=== PATIENT | female | born 1970 | race Caucasian/White ===

== ENCOUNTER → 2017-03-03 | Outpatient (CLI) | payer BC ==
[2017-03-03 19:22] LABS: Basophils % (A) 0 %; CH 27.3; CHCM 32.2; Eosinophils % (A) 1 %; HCT 41.4 % (34.0-46.0); HDW 2.64; HGB 13.3 gm/dL (11.4-16.0); Luc # (Auto) 0.11; Luc % (Auto) 2; Lymphocytes # (A) 1.8 k/uL (1.0-4.8); Lymphocytes % (A) 31 %; MCH 27.4 pg (25.0-35.0); MCHC 32.2 g/dL (31.0-37.0); MCV 85.1 fL (80.0-100.0); Mean Platelet Volume 7.7; Monocytes # (A) 0.3 k/uL (0-1.0); Monocytes % (A) 5 %; Neutrophils # (A) 3.6 k/uL (1.3-7.7); Neutrophils % (A) 61 %; RBC 4.86 m/uL (3.80-5.40); RDW 14.1 % (11.5-15.5); WBC 5.9 k/uL (3.8-10.6); WBC (Perox) 6.25
[2017-03-03 19:29] LABS: ALT 22 U/L (9-52); AST 26 U/L (14-36); Alkaline Phosphatase 90 U/L (38-126); Anion Gap 12 mmol/L; Blood Urea Nitrogen 16 mg/dL (7-17); Calcium 9.8 mg/dL (8.4-10.2); Carbon Dioxide 23 mmol/L (22-30); Chloride 105 mmol/L (98-107); Cholesterol 256 mg/dL (<200); Glucose 87 mg/dL (74-99); HDL Cholesterol 65 mg/dL (40-60); Non-African American GFR(MDRD) >60 (>60 ml/min/1.73 sqM); Potassium 4.2 mmol/L (3.5-5.1); Sodium 140 mmol/L (137-145); Total Bilirubin 0.6 mg/dL (0.2-1.3); Triglycerides 92 mg/dL (<150)
== END ==
LOC: MMGSC 12:03
PROVIDERS: ATTEND Family Medicine
DX: Z00.00 Encounter for general adult medical examination without abnormal findings (principal)
CPT/HCPCS: 36415; 80053; 80061; 84443; 85025

== ENCOUNTER → 2021-06-28 | Outpatient (CLI) | payer BC ==
--- NOTE | 2021-06-28 18:23 | CONS ---
CONSULTATION DATE OF SERVICE: 06/28/2021 50-year-old lady has been evaluated in [facility] for significant excessive daytime sleepiness. The patient falling asleep in different situations during the day. HISTORY OF PRESENT ILLNESS/SLEEP WAKE EVALUATION: SLEEP SCHEDULE: Patient's usual sleep schedule from 10 p.m. to 5 a.m. on weekdays and from 11 p.m. to 7 a.m. on weekends. FALLING ASLEEP: No problems with falling asleep, but during the night, the patient wakes up 4 times with 4 episodes of nocturia. DURING SLEEP: Usually she sleeps on the side position. According to the patient, she does not snore. No history of hypnagogic hallucinations, sleep paralysis or cataplexy. Geneva Sleepiness Scale is in very high range of 16. DURING THE DAY/SLEEP WAKE EVALUATION: The patient falling asleep very quickly while sitting and reading, watching TV, as a passenger in the car, or lying down in the afternoon. PAST MEDICAL HISTORY: Mostly negative. MEDICATIONS: None. SOCIAL HISTORY: Negative for smoking or using alcohol occasionally. REVIEW OF SYSTEMS: Rare hot flashes but irregular menstrual periods. No chest pain. No headaches. No abdominal pain. No blood in the stool or urine. Sleepiness during the day. FAMILY HISTORY: Hyperlipidemia. PHYSICAL EXAMINATION: GENERAL: lady without distress. BP 152/78, HR 84, RR 14, height 5 foot, 5 inches, weight 187 pounds. Body mass index 31.1, temperature 98.0, oxygen saturation at room air 95%. Oropharynx low position of soft palate, Mallampati 3. NECK: 14 inches in circumference. Neck: Supple, no JVD. Thyroid is not palpable. LUNGS: Clear to percussion and to auscultation. Good air exchange. No wheezing or rhonchi. HEART: S1, S2 regular. No murmurs, gallops, or rubs. ABDOMEN: Soft and nontender. Bowel sounds are present. No organomegaly appreciated. EXTREMITIES: No clubbing or cyanosis. ALLERGY SPECIALIST: Awake, alert, and oriented X3. Cranial nerves 2 to 7 intact. There is no fasciculation or atrophy. noted. No focal deficits observed. IMPRESSION: 1. Multiple awakenings from sleep every 2 hours, low position of soft palate, Mallampati 3, sleepiness during the day, possible obstructive sleep apnea-hypopnea syndrome. 2. Significant excessive daytime sleepiness. Geneva Sleepiness Scale increased to 16. Differential diagnosis should include hypersomnia and narcolepsy. 3. Mild obesity, body mass index 31.1. 4. Hypertension in the office today. PLAN: 1. Home sleep apnea test to check patient's breathing during sleep. 2. Polysomnogram with following multiple sleep latency test if home sleep apnea test negative for obstructive sleep apnea or periodic limb movements. 3. Increase time in bed to at least 8 hours per night. 4. No driving if feeling sleepiness. 5. Watching and losing weight. 6. No driving if feeling sleepiness. Thank you very much for referring this patient for consultation. Sincerely, Jose Chopra MD, PhD, FAASM Diplomat of [employer] Sleep Medicine Board of [employer] Retirement Sales Consultant of [facility] [place] MMODL / PAOLAN: [id number] /
== END ==
LOC: SLEEP 09:56
PROVIDERS: ATTEND Internal Medicine
DX: G47.10 Hypersomnia, unspecified (principal); I10 Essential (primary) hypertension; E66.9 Obesity, unspecified; Z68.31 Body mass index [BMI] 31.0-31.9, adult
CPT/HCPCS: 99211

== ENCOUNTER 2021-09-12 08:15 | Day surgery (SDC) | payer BC ==
[2021-09-10 10:16] VITALS: BMI 29.9
[~2021-09-12 08:15] MED LIST: LACTATED RINGERS 1,000 ML IV SCH; LIDOCAINE 1% (10MG/ML) FOR IV START INTRADERMA PRN
[2021-09-12 08:45] VITALS: TEMP 97.3
[2021-09-12] MEDS ORDERED: PROPOFOL 10 MG/ML 20 ML VIAL IV ONE (09:16)
--- NOTE | 2021-09-12 09:35 | P.PCN ---
Date of Procedure: 09/12/21 Procedure(s) Performed: BRIEF HISTORY: Patient is a 50-year-old pleasant white female scheduled for an elective colonoscopy as a part of screening for colorectal neoplasia PROCEDURE PERFORMED: Colonoscopy with biopsy. PREOPERATIVE DIAGNOSIS: Screening for colon cancer. IV sedation per Anesthesia. PROCEDURE: After informed consent was obtained, the patient, was brought into the endoscopy unit. IV sedation was administered by Anesthesia under continuous monitoring. Digital rectal examination was normal. Initially the Olympus CF-160 flexible video colonoscope was then inserted in the rectum, gradually advanced into the cecum without any difficulty. Careful examination was performed as the scope was gradually being withdrawn. Ileocecal valve and the appendiceal orifice were visualized and appeared normal. Prep was excellent. Mucosa of the cecum, ascending colon, transverse colon, descending colon, sigmoid colon, and rectum appeared normal. In the distal sigmoid colon there was a 3-4 mm polyp that was removed by cold biopsy. Retroflexion was performed in the rectum and no lesions were seen. The patient tolerated the procedure well. IMPRESSION: 3-4 mm distal sigmoid colon polyp status post biopsy Rest of the colon appeared normal RECOMMENDATIONS: Findings of this examination were discussed with the patient as well as her family. She was advised to follow with the biopsy results. If the biopsy reveals adenoma she can have a repeat colonoscopy in 5 years.
[2021-09-12 10:00] VITALS: BP 110/76; PULSE 62; RESP 16
== END 2021-09-12 10:30 | disposition home or self-care (01) ==
LOC: ORWHC2ENDO 08:15
PROVIDERS: ATTEND Internal Medicine Gastroenterology
DX: Z12.11 Encounter for screening for malignant neoplasm of colon (principal); K63.5 Polyp of colon; Z98.890 Other specified postprocedural states
CPT/HCPCS: 81025; 88305; 45380; J2704

== ENCOUNTER → 2021-10-03 | Outpatient (CLI) | payer BC ==
--- NOTE | 2021-10-03 21:37 | SFUN ---
SLEEP CENTER FOLLOW UP NOTE DATE OF SERVICE: 10/03/2021 50-year-old lady has been followed in Sleep Center to discuss results of the sleep studies and following plan. I discussed results of sleep studies with patient in detail. Polysomnography which was done on 09/23/2021 did not show any significant abnormalities of respiration, but periodic limb movements totally 123 events at 19.2 events per hour with 3.3 micro arousals have been documented. Multiple sleep latency test on the following day confirmed sleepiness. The patient fell asleep on all naps. Mean sleep latency was 8.1, which is slightly longer than for the standard of a diagnosis of narcolepsy. No sleep onset REM periods have been documented, but definitely shorter than normal and does confirm sleepiness. Warren Sleepiness Scale today increased to 13. MEDICATIONS: None. PHYSICAL EXAMINATION: GENERAL: Patient in no distress. BP 108/69, HR 69, RR 15, height 5, 5 inches, weight 187, temperature 97.4 oxygen saturation at room air 98%. HEENT: PERRLA, EOMI, evaluation of oropharynx showed tongue protrudes midline. NECK: Supple, no JVD. Thyroid is not palpable. LUNGS: Clear to percussion and to auscultation. Good air exchange. No wheezing or rhonchi. HEART: S1, S2 regular. No murmurs, gallops, or rubs. ABDOMEN: Soft and nontender. Bowel sounds are present. No organomegaly appreciated. EXTREMITIES: No clubbing or cyanosis. PLASTIC H[employer]ITAL PRODUCTS ASSEMBLER: Awake, alert, and oriented X3. Cranial nerves 2 to 7 intact. There is no fasciculation or atrophy. noted. No focal deficits observed. IMPRESSION: 1. No respiratory abnormalities during the sleep study. 2. Periodic limb movements have been documented in mild range during the sleep test. 3. Multiple sleep latency test confirmed sleepiness. Mean sleep latency 8.1 minutes. No sleep onset REM periods have been documented and this is after 90% sleep efficiency during the previous night. 4. Patient continues to feel sleepiness during the day. Warren Sleepiness Scale increased to 13. 5. Mild obesity. PLAN: 1. Please check iron profile, including ferritin level. Low level of iron may increase risk for periodic limb movements. If ferritin is less than 50 mcg/mL, iron should be replaced. 2. We will try small doses of Mirapex which preventing periodic limb movements to see if that will improve patient feelings during the day and prevent awakenings from sleep. 3. We may consider small doses of the smallest dose of sleeping pill like clonazepam 0.5 mg at bedtime to see if that will improve the patient sleep at night and feeling in the morning and during the day. 4. If above the possibilities of treatment will not work, we will consider to start patient on daytime medication against sleepiness. Her preference is to take medication to improve her sleep that is why we are starting with the medication for the sleep time. 5. Precautions related to driving. No driving if feeling sleepiness. 6. Sleep hygiene with regular time in bed for at least 7-1/2 to 8 hours. 7. Follow-up visit in 4 to 6 weeks. Thank you very much for allowing me to participate in management of your patient. Sincerely, Jose Chopra MD, PhD, FAASM Diplomat of [place] [employer] Sleep Medicine Board of [place] [employer] Feed Crusher Operator of [facility] [place] [email or web address] / GRZEGORZ: [id number] /
== END ==
LOC: SLEEP 16:16
PROVIDERS: ATTEND Internal Medicine
DX: G47.10 Hypersomnia, unspecified (principal); G47.61 Periodic limb movement disorder; E66.9 Obesity, unspecified